=== PATIENT | male | born 1940 | race Caucasian/White ===

== ENCOUNTER → 2024-03-29 09:28 | Outpatient (REF) | payer MEDICARE, BC, SELFPAY | LOC: RAD 09:28 | PROVIDERS: ATTENDING PHYSICIAN Surgery Vascular Surgery; FAMILY PHYSICIAN Family Medicine | DX: L98.8 Other specified disorders of the skin and subcutaneous tissue (principal); Z01.818 Encounter for other preprocedural examination | CPT/HCPCS: 93985 ==